=== PATIENT | female | born 1970 | race Asian ===

== ENCOUNTER 2018-07-28 14:18 | Outpatient (CLI) | payer OTHER ==
[2018-07-28 14:38] LABS: POTASSIUM 3.9 mmol/L (3.6-5.2); SODIUM 140 mmol/L (136-145)
== END 2018-07-28 20:34 | disposition home or self-care (01) ==
LOC: LABW 14:18
PROVIDERS: Nurse Practitioner Family
DX: R00.2 Palpitations (principal)
CPT/HCPCS: 36415; 80053; 82550; 82553; 84484; 93005

== ENCOUNTER 2018-09-14 15:43 | Outpatient (CLI) | payer OTHER | END 2018-09-14 22:52 | disposition home or self-care (01) | LOC: US 15:43 | DX: R94.5 Abnormal results of liver function studies (principal) ==